=== PATIENT | female | born 1960 | race African-American/Black ===

== ENCOUNTER 2020-12-21 14:33 | Emergency (ER) | payer OTHER ==
[~2020-12-21] VITALS: Ht 167.6 cm; Wt 68.0 kg
[2020-12-21 14:35] VITALS: BP 184/106
== END 2020-12-21 17:32 | disposition left against medical advice (07) ==
LOC: ER 14:33
DX: Z53.21 Procedure and treatment not carried out due to patient leaving prior to being seen by health care provider (principal)